=== PATIENT | male | born 1970 | race Caucasian/White ===

== ENCOUNTER 2017-04-18 09:22 | Emergency (ER) | payer OTHER ==
[~2017-04-18] VITALS: Ht 175.3 cm; Wt 78.0 kg
[~2017-04-18 09:22] MED LIST: NAPROSYN500 MG PO; OMEPRAZOLE PO; [UNRECOGNIZED DRUG - REMARK] PO
[2017-04-18] MEDS ORDERED: INDOMETHACIN75 MG PO (10:22)
[2017-04-18] MEDS ORDERED: COLCHICINE0.6 M2 PO (10:22)
[2017-04-18 10:26] VITALS: BP 148/89
== END 2017-04-18 10:39 | disposition home or self-care (01) | DRG 563 ==
LOC: ED 09:22
DX: S93.491A Sprain of other ligament of right ankle, initial encounter (principal); I10 Essential (primary) hypertension; M10.9 Gout, unspecified; K21.9 Gastro-esophageal reflux disease without esophagitis; F17.210 Nicotine dependence, cigarettes, uncomplicated; X50.0XXA Overexertion from strenuous movement or load, initial encounter; X50.9XXA Other and unspecified overexertion or strenuous movements or postures, initial encounter; Y93.E5 Activity, floor mopping and cleaning; Y92.89 Other specified places as the place of occurrence of the external cause

== ENCOUNTER 2018-10-04 16:03 | Emergency (ER) | payer OTHER ==
[~2018-10-04] VITALS: Ht 175.3 cm; Wt 77.3 kg
[~2018-10-04 16:03] MED LIST changes: +COLCHICINE0.6 M2 PO; +INDOMETHACIN75 MG PO
[2018-10-04] MEDS ORDERED: PRAVASTATIN SOD40 MG PO (16:34)
[2018-10-04] MEDS ORDERED: AMLODIPINE BESY10 MG PO (16:34)
[2018-10-04] MEDS ORDERED: CIALIS10 MG PO (16:34)
[2018-10-04] MEDS ORDERED: LISINOPRIL40 MG PO (16:34)
[2018-10-04] MEDS ORDERED: OMEPRAZOLE10 MG PO (16:36)
[2018-10-04] MEDS ORDERED: NAPROSYN500 MG PO (16:40)
[2018-10-04 16:55] VITALS: BP 126/82
== END 2018-10-04 16:55 | disposition home or self-care (01) | DRG 563 ==
LOC: ED 16:03
DX: S93.402A Sprain of unspecified ligament of left ankle, initial encounter (principal); I10 Essential (primary) hypertension; K21.9 Gastro-esophageal reflux disease without esophagitis; F17.210 Nicotine dependence, cigarettes, uncomplicated; W17.2XXA Fall into hole, initial encounter

== ENCOUNTER 2019-06-06 06:20 | Day surgery (SDC) | payer OTHER ==
[~2019-06-06] VITALS: Ht 175.3 cm; Wt 79.4 kg
[~2019-06-06 06:20] MED LIST changes: +AMLODIPINE BESY10 MG PO; +CIALIS10 MG PO; +LISINOPRIL40 MG PO; +OMEPRAZOLE10 MG PO; +PRAVASTATIN SOD40 MG PO
[2019-06-06 09:00] VITALS: BP 130/91
== END 2019-06-06 09:05 | disposition home or self-care (01) | DRG 951 ==
LOC: ENDO 06:20 → ORM 08:15 → ENDO 08:15
PROVIDERS: ATTEND Internal Medicine Gastroenterology
PROC: 0DBN8ZX Excision of Sigmoid Colon, Via Natural or Artificial Opening Endoscopic, Diagnostic (ICD-10-PCS; principal; 2019-06-06)
PROC: 0DB48ZX Excision of Esophagogastric Junction, Via Natural or Artificial Opening Endoscopic, Diagnostic (ICD-10-PCS; 2019-06-06)
PROC: 0DB78ZX Excision of Stomach, Pylorus, Via Natural or Artificial Opening Endoscopic, Diagnostic (ICD-10-PCS; 2019-06-06)
PROC: 0DB58ZX Excision of Esophagus, Via Natural or Artificial Opening Endoscopic, Diagnostic (ICD-10-PCS; 2019-06-06)
PROC: 0D758ZZ Dilation of Esophagus, Via Natural or Artificial Opening Endoscopic (ICD-10-PCS; 2019-06-06)
DX: Z12.11 Encounter for screening for malignant neoplasm of colon (principal); K63.5 Polyp of colon; K57.30 Diverticulosis of large intestine without perforation or abscess without bleeding; K64.8 Other hemorrhoids; K64.4 Residual hemorrhoidal skin tags; K22.8 Other specified diseases of esophagus; K22.2 Esophageal obstruction; K29.70 Gastritis, unspecified, without bleeding; K29.80 Duodenitis without bleeding; K31.9 Disease of stomach and duodenum, unspecified; K21.9 Gastro-esophageal reflux disease without esophagitis; I10 Essential (primary) hypertension; Z79.899 Other long term (current) drug therapy